=== PATIENT | male | born 2000 | race Caucasian/White ===

== ENCOUNTER 2020-04-12 02:45 | Emergency (ER) | payer BC, MEDICAID ==
[2020-04-12] MEDS ORDERED: Lidocaine 1% 20 ML MDV INJECT ONE (03:32)
[2020-04-12] MEDS ORDERED: Lidocaine 1% 10 ML MDV INJECT ONE (03:35)
--- NOTE | 2020-04-12 04:05 | EDM.PDOC ---
ED HPI GENERAL MEDICAL PROBLEM - General Chief Complaint: Genitourinary Problem Stated Complaint: CUT PENIS WITH BARBWIRE Time Seen by Provider: 04/12/20 03:27 Source of Information: Reports: Patient History Limitations: Reports: No Limitations - History of Present Illness INITIAL COMMENTS - FREE TEXT/NARRATIVE: This is a 19-year-old male. This evening he was trying to climb over a barbed wire fence and his feet slipped and he was cut by the lina wire. He has about a 3 cm laceration to the left shaft of the penis. He also has an abrasion to his anterior right thigh that does not require sutures. The laceration on the penis shaft is at least 4 to 5 mm deep but not into the core of the penis. It is just violates the full-thickness of the skin and no further. He has had no problem urinating. Is up-to-date with his tetanus. - Related Data Allergies Allergy/AdvReac Type Severity Reaction Status Date / Time No Known Allergies Allergy Verified 04/12/20 02:59 Home Meds: Home Meds . [No Known Home Meds] 04/12/20 [History] Past Medical History Musculoskeletal History: Reports: Fracture Other Musculoskeletal History: coller bone (2016) - Past Surgical History HEENT Surgical History: Reports: Oral Surgery, Tonsillectomy Social & Family History - Family History Family Medical History: Noncontributory - Tobacco Use Smoking Status *Q: Never Smoker Second Hand Smoke Exposure: No - Caffeine Use Caffeine Use: Reports: None - Recreational Drug Use Recreational Drug Use: No ED ROS GENERAL - Review of Systems Review Of Systems: See Below Constitutional: Reports: No Symptoms HEENT: Reports: No Symptoms Respiratory: Reports: No Symptoms Cardiovascular: Reports: No Symptoms Endocrine: Reports: No Symptoms GI/Abdominal: Reports: No Symptoms : Reports: Other (As per HPI) Musculoskeletal: Reports: No Symptoms Skin: Reports: Other (As per HPI) Neurological: Reports: No Symptoms Psychiatric: Reports: No Symptoms Hematologic/Lymphatic: Reports: No Symptoms ED EXAM, RENAL/ - Physical Exam Exam: See Below Exam Limited By: No Limitations General Appearance: Alert, WD/WN, No Apparent Distress Ears: Normal External Exam Nose: Normal Inspection Throat/Mouth: Normal Lips, Normal Voice, No Airway Compromise Head: Normocephalic Neck: Supple Respiratory/Chest: No Respiratory Distress (Male) Exam: Other (He has a 3 cm laceration that is full-thickness but not any deeper on the base of the left side of the shaft of the penis. Bleeding is well controlled. No other trauma to the penis or the scrotum.) Back Exam: Full Range of Motion Extremities: Normal Inspection, Normal Range of Motion Neurological: Alert, Oriented Psychiatric: Normal Affect, Normal Mood Skin Exam: Warm, Dry ED LACERATION PROCEDURES - Laceration/Wound Repair Groin Lac/wound length in cm: 3 Appearance: Subcutaneous Distal NVT: Neuro & Vascular Intact Anesthetic Type: Local Local Anesthesia - Lidocaine (Xylocaine): 1% Plain Local Anesthetic Volume: 5cc Skin Prep: Providone-Iodine (Betadine), Saline Exploration/Debridement/Repair: Wound Explored, Other (Is just a skin laceration it goes no deeper into the core of the shaft of the penis) Suture Size: 5-0 # of Sutures: 6 (They were loose sutures to allow the skin to not buckle under.) Suture Type: Nylon Sterile Dressing Applied: Nurse Tetanus Status Addressed: Yes Complications: No Course - Vital Signs Last Recorded V/S: Last Vital Signs Temp 97.9 F 04/12/20 02:52 Pulse 88 04/12/20 02:52 Resp 18 04/12/20 02:52 BP 133/76 04/12/20 02:52 Pulse Ox 100 04/12/20 02:52 - Orders/Labs/Meds Meds: Medications Discontinued Medications Generic Name Dose Route Start Last Admin Trade Name Freq PRN Reason Stop Dose Admin Lidocaine HCl 20 ml 04/12/20 03:32 04/12/20 04:00 Xylocaine 1% INJECT 04/12/20 03:33 Not Given ONETIME ONE Lidocaine HCl 10 ml 04/12/20 03:35 Xylocaine 1% INJECT 04/12/20 03:36 ONETIME ONE Departure - Departure Time of Disposition: 04:00 Disposition: Home, Self-Care 01 Condition: Good Clinical Impression: Laceration of penis without foreign body Qualifiers: Encounter type: initial encounter Qualified Code(s): S31.21XA - Laceration without foreign body of penis, initial encounter - Discharge Information *PRESCRIPTION DRUG MONITORING PROGRAM REVIEWED*: Not Applicable *COPY OF PRESCRIPTION DRUG MONITORING REPORT IN PATIENT KVNG: Not Applicable Instructions: Wound Care, Adult, Sutured Wound Care, Laceration Care, Adult, [id number] Referrals: PCP,None [Primary Care Provider] - Additional Instructions: Keep the area clean, you might want to wear fitted underware for the next few days so it does not move and cause irritation of the laceration, for infection which is increased swelling pain or drainage or redness. If any signs of infection occur follow-up with a physician immediately, use Tylenol or ibuprofen as needed for the soreness, you may take a shower but be gentle, have the sutures removed in 7 days by a walk-in clinic or an ER, return to this ER if needed Sepsis Event Note (ED) - Evaluation Sepsis Screening Result: No Definite Risk - Focused Exam Vital Signs: Vital Signs Temp Pulse Resp BP Pulse Ox 04/12/20 02:52 97.9 F 88 18 133/76 100
== END 2020-04-12 04:15 | disposition home or self-care (01) ==
LOC: JD.ED 02:45
DX: S31.21XA Laceration without foreign body of penis, initial encounter (principal); W26.8XXA Contact with other sharp object(s), not elsewhere classified, initial encounter
CPT/HCPCS: 12002; 99282; J2001